=== PATIENT | female | born 1930 | race Caucasian/White ===

== ENCOUNTER → 2020-09-01 | Outpatient (CLI) | payer MEDICARE ==
[~2020-09-01] MED LIST: ALBUTEROL2.5 MG/3 M INH; ASPIRIN EC81 MG PO; CLARITIN10 M2 PO; ESTRACE1 MG PO; FEOSOL325 MG PO; FISH OIL 1,2001 EAC1 PO; PLETAL 100 MG100 MG PO; POLYETHYLENE GL17 GM PO; PROTONIX40 MG PO; SPIRIVA HANDIH18 MCG INH; THERAGRAN M TAB1 EA PO; TIROSINT125 MCG PO; VENTOLIN HFA 66.7 GM INH; VERAPAMIL ER240 MG PO
== END ==
LOC: EXRD 14:10 → US 14:10
DX: I73.9 Peripheral vascular disease, unspecified (principal)
CPT/HCPCS: 93925